=== PATIENT | female | born 1965 | race Two or more races ===

== ENCOUNTER 2018-06-15 08:16 | Day surgery (SDC) | payer BC ==
[~2018-06-15] VITALS: Ht 157.5 cm; Wt 62.1 kg
[~2018-06-15 08:16] MED LIST: AMITRIPTYLINE25 MG ORAL; LR 1000ml 1,000 ML IVLG SCH; MAXALT5 MG PO; PROPRANOLOL HCL40 MG ORAL
[2018-06-15 08:55] VITALS: BP 141/90
--- NOTE | 2018-06-15 09:20 | Pre-Procedure Note/Attestation ---
Pre-Procedure Note/Attestation Complete Prior to Procedure Planned Procedure: left Procedure Narrative: Examination of the colon via colonoscopy Indications for Procedure Pre-Operative Diagnosis: R/O colon CA/polyp Attestation I attest that I discussed the nature of the procedure; its benefits; risks and complications; and alternatives (and the risks and benefits of such alternatives ), prior to the procedure, with the patient (or the patient's legal abrasives sales representative). I attest that, if there was a reasonable possibility of needing a blood transfusion, the patient (or the patient's legal abrasives sales representative) was given the [facility] standardized written summary, pursuant to the Hector Laila Blood Safety Act ([place] Health and Safety Code # 1645, as amended). I attest that I re-evaluated the patient just prior to the surgery and that there has been no change in the patient's H&P, except as documented below: Micah Romero MD Jun 15, 2018 09:20
--- NOTE | 2018-06-15 09:20 | Short Stay Surgery H&P ---
History of Present Illness History of Present Illness Chief Complaint Screening colonoscopy ARUNA Whitman is a 53 year old female who was admitted on for Colon Screening Patient History Allergies: Coded Allergies: CHEESE (Verified Adverse Reaction, Severe, Migraine headache , 06/14/18) Medication History Scheduled Amitriptyline HCl (Elavil*), 25 MG ORAL BEDTIME, (Reported) Propranolol Hcl* (Inderal*), 60 MG ORAL DAILY, (Reported) Rizatriptan Benzoate (Maxalt), 5 MG PO DAILY, (Reported) Review of Systems Cardiovascular: Reports: no symptoms, hypertension Respiratory: Reports: no symptoms Skeletal: Reports: no symptoms Gastrointestinal: Reports: no symptoms Genitourinary: Reports: no symptoms Neurologic: Reports: other Endocrine: Reports: no symptoms Hematologic: Reports: no symptoms Physical Exam Vital Signs Last Vital Signs Date Time Temp Pulse Resp B/P (MAP) Pulse Ox O2 Delivery O2 Flow Rate FiO2 06/15/18 08:55 98.5 83 18 141/90 100 Room Air Skin: normal HENT: normal Heart: normal Lungs: normal Abdomen: normal Extremities: normal Plan Plan of Care Screening colonoscopy Preop Interventions None. Summary of Findings See the reports Attestation Are the patient's medical conditions optimized for surgery? Attestation Response: yes Micah Romero MD Jun 15, 2018 09:20
[2018-06-15] MEDS ORDERED: LR 1000ml ONE (09:30)
[2018-06-15] MEDS ORDERED: Lidocaine 1% MPF 10mg/ml 5ml ONE (09:30)
[2018-06-15] MEDS ORDERED: Midazolam 2mg/2ml Inj ONE (09:30)
[2018-06-15] MEDS ORDERED: Propofol 200mg/20ml IV ONE (09:30)
--- NOTE | 2018-06-15 09:52 | Endoscopy Procedure Note ---
Endoscopy Procedure Note General Indication for Procedure: Screening colon Procedures Performed: colonoscopy - Minimal hemorrohids, otherwise completely normal total colon. Specimen: none Pt Tolerated Procedure Well: Yes Estimated Blood Loss: none Anesthesia Anesthesiologist: Ms. Sissy Herrmann CRNA Anesthesia: moderate sedation Medications Medication Given: see anesthesia record Inserted Devices Implant(s) used?: No Quality Quality of Bowel Preparation: Fair Did scope reach the cecum?: Yes Was there any complications?: No GI Core Measures 50 yrs or older w/o bx or poly: Yes 10yrs. F/U not recommended: Yes If not recommended, why?: 10 yrs. F/U needed: Yes 18 years or older w/prev. colo: No <3yrs. since last colonoscopy: No Med reason:<3 yrs.: System Reason:<3 yrs.: Last colonoscopy >= to 3yrs: Yes Micah Romero MD Jun 15, 2018 09:52
--- NOTE | 2018-06-15 09:53 | Discharge Instructions ---
Discharge Instructions Discharge Instructions Follow up with: See the docotor after 2 weeks in the office For Congestive Heart Failure Reminder Report to your physician any weight gain of 5 pounds or more in one week. Micah Romero MD Jun 15, 2018 09:53
[2018-06-15 09:56] VITALS: BP 116/73
[2018-06-15 10:00] VITALS: BP 120/71
[2018-06-15 10:05] VITALS: BP 122/70
--- NOTE | 2018-06-15 10:20 | Anethesia Preoperative Eval ---
Anesthesia Pre-op PMH/ROS General Date of Evaluation: Jun 15, 2018 Time of Evaluation: 09:30 Anesthesiologist: Alize ASA Score: ASA 1 Mallampati Score Class I : Soft palate, uvula, fauces, pillars visible Class II: Soft palate, uvula, fauces visible Class III: Soft palate, base of uvula visible Class IV: Only hard plate visible Mallampati Classification: Class II Surgeon: Nick Diagnosis: colon screening Surgical Procedure: Colonoscopy Anesthesia History: none Family History: no anesthesia problems Allergies: Coded Allergies: CHEESE (Verified Adverse Reaction, Severe, Migraine headache , 06/14/18) Medications: see eMAR Patient NPO?: Yes NPO Date: Jun 14, 2018 NPO Time: 23:00 Past Medical History Cardiovascular: Reports: HTN Pulmonary: Denies: asthma, COPD, WANG, other Gastrointestinal/Genitourinary: Reports: other Neurologic/Psychiatric: Denies: dementia, CVA, depression/anxiety, TIA, other Endocrine: Denies: DM, hypothyroidism, steroids, other HEENT: Reports: other - headaches, migraines Hematology/Immune: Reports: anemia Musculoskeletal/Integumentary: Denies: OA, RA, DJD, DDD, edema, other PSxH Narrative: Uterus removal, tubal ligation Anesthesia Pre-op Phys. Exam Physician Exam Last Vital Signs Date Time Temp Pulse Resp B/P (MAP) Pulse Ox O2 Delivery O2 Flow Rate FiO2 06/15/18 10:05 96 20 122/70 100 Simple Mask 8 06/15/18 09:56 98.0 Constitutional: NAD Neurologic: CN 2-12 intact Cardiovascular: RRR Respiratory: CTA Gastrointestinal: S/NT/ND Airway Exam Mallampati Score: Class II MO: full ROM: full Teeth: intact Dentures: no upper, no lower Anesthesia Pre-op A/P Risk Assessment & Plan Assessment: A&Ox4 Plan: MAC Status Change Before Surgery: No Pre-Antibiotics Given Within 1 Hr of Incision: No Sissy Herrmann CRNA Jun 15, 2018 10:20
--- NOTE | 2018-06-15 10:26 | Immediate Post-Op Evaluation ---
Immediate Post-Op Evalulation Immediate Post-Op Evalulation Procedure: colonoscopy Date of Evaluation: Jun 15, 2018 Time of Evaluation: 09:58 IV Fluids: LR 400 ml Blood Products: 0 Estimated Blood Loss: 0 Urinary Output: 0 Blood Pressure Systolic: 116 Blood Pressure Diastolic: 73 Pulse Rate: 88 Respiratory Rate: 22 O2 Sat by Pulse Oximetry: 100 Temperature (Fahrenheit): 98.0 Pain Score (1-10): 0 Nausea: No Vomiting: No Complications none Patient Status: awake, reacts Hydration Status: adequate Given Within 1 Hr of Incision: No - none per surgeon Sissy Herrmann CRNA Jun 15, 2018 10:26
[2018-06-15 10:35] VITALS: BP 142/80
--- NOTE | 2018-06-15 11:03 | 48 Hour Post Anesthesia Eval ---
Post Anesthesia Evaluation Procedure: colonoscopy Date of Evaluation: Jun 15, 2018 Time of Evaluation: 11:01 Blood Pressure Systolic: 122 0: 70 Pulse Rate: 96 Respiratory Rate: 20 Temperature (Fahrenheit): 97.8 O2 Sat by Pulse Oximetry: 100 Airway: patent Nausea: No Vomiting: No Pain Intensity: 0 Hydration Status: adequate Cardiopulmonary Status: WNL Mental Status/LOC: patient returned to baseline Follow-up care needed: patient intructions given Sissy Herrmann CRNA Jun 15, 2018 11:03
[2018-06-15 11:05] VITALS: BP 138/76
--- NOTE | 2018-06-15 13:30 | Operative Note - Dictated ---
DATE OF OPERATION: 06/15/2018 SURGEON: Micah Romero M.D. PROCEDURE: Total colonoscopy. PREOPERATIVE DIAGNOSIS: Screening colonoscopy. POSTOPERATIVE DIAGNOSIS: Minimal internal hemorrhoid, otherwise complete normal total colonoscopy. MEDICATION USED: Per Ms. Sissy Herrmann. INSTRUMENT: GIF Olympus video colonoscope. DESCRIPTION OF PROCEDURE: The patient after arriving endoscopy unit, was told about risks and benefits of the procedure, which she accepted and signed informed consent. She was then put in the left lateral decubitus position. After adequate IV sedation, the scope was gradually passed through the anal area, which revealed evidence of minimal internal hemorrhoids consistent with grade 1. The retroflexion maneuver was also applied in the rectum, which did not reveal any other abnormalities also except there is minimal internal hemorrhoids. The rest of the rectum looked completely normal. At this time, the scope was advanced through rather redundant colon reaching to the splenic flexure, transverse colon, hepatic flexure, and finally was guided into the right side of the colon and reached towards the base of the cecum. All these areas remained to be completely normal. There was evidence of stool along the colon, which was consistent with fair cleanup. At this point within 7 minutes, the scope was gradually pulled out and re-evaluation of the colon did not reveal any other abnormalities except what is stated. The patient tolerated the procedure well and left the endoscopy room in a good condition. Micah Romero M.D. DR: CHAIM JOB#: [id number] CC:
== END 2018-06-15 11:00 | disposition home or self-care (01) ==
LOC: GAS 08:16
DX: Z12.11 Encounter for screening for malignant neoplasm of colon (principal); K64.8 Other hemorrhoids; I10 Essential (primary) hypertension; D64.9 Anemia, unspecified; G43.909 Migraine, unspecified, not intractable, without status migrainosus; Z91.011 Allergy to milk products
CPT/HCPCS: 45378; J2250; J2704; 94003; 94150